=== PATIENT | male | born 1995 | race Two or more races ===

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

== ENCOUNTER 2017-08-25 12:35 | Emergency (ER) | payer MEDICAID ==
[~2017-08-25] VITALS: Ht 182.9 cm; Wt 79.4 kg
[2017-08-25] MEDS ORDERED: KETOROLAC TROMETHAMINE 60 MG INJ IM ONE ×2 (13:30→13:35)
[2017-08-25 13:51] LABS: *BILIRUBIN,URIN NEGATIVE (NEGATIVE); *BLOOD, URINE NEGATIVE (NEGATIVE); *CLARITY,URINE CLOUDY (CLEAR); *COLOR,URINE YELLOW (YELLOW); *KETONES,URINE NEGATIVE (NEGATIVE); *PROTEIN,URINE NEGATIVE (NEGATIVE); *UROBILINOGEN,URINE 0.2 E.U./dl (NORMAL); LEUKOCYTE ESTERASE ,URINE NEGATIVE (NEGATIVE); NITRITE, URINE NEGATIVE (NEGATIVE); PH,URINE 7.5 (5.0-8.0); UGLUCOSE NEGATIVE (NEGATIVE)
[2017-08-25 14:09] LABS: BACTERIA,URINE NONE SEEN /HPF (NONE SEEN); RBC,URINE 0-3 /HPF (0-3); SQUAMOUS EPITHELIAL CELL,UR FEW /HPF (NONE SEEN); WBC,URINE 0-3 /HPF (0-3)
[2017-08-25 14:10] LABS: MUCUS,URINE FEW /LPF (0-FEW); URINE AMORPHOUS PHOSPHATES MODERATE /HPF
[2017-08-25 14:11] VITALS: BP 112/77
--- NOTE | 2017-08-25 14:11 | NUR ---
Patient discharged to home in stable conditon. Written and verbal after care instructions given. Patient verbalizes understanding of instructions.
== END 2017-08-25 14:12 | disposition home or self-care (01) ==
LOC: ER 12:37
DX: S39.012A Strain of muscle, fascia and tendon of lower back, initial encounter (principal); X58.XXXA Exposure to other specified factors, initial encounter; Y92.89 Other specified places as the place of occurrence of the external cause
CPT/HCPCS: 81001; 99283; A4663; J1885

== ENCOUNTER 2022-10-17 03:42 | Emergency (ER) | payer MEDICAID ==
[~2022-10-17] VITALS: Ht 182.9 cm; Wt 95.3 kg
--- NOTE | 2022-10-17 03:51 | NUR ---
Dr. Moulton at bedside for mSE.
--- NOTE | 2022-10-17 04:00 | NUR ---
xray at bedside.
[2022-10-17] MEDS ORDERED: ACET1TAB23 PO (04:18)
[2022-10-17 04:21] VITALS: BP 138/89; O2SAT 100
--- NOTE | 2022-10-17 04:21 | NUR ---
Patient discharged to home in stable condition. Written and verbal after care instructions given. Patient verbalizes understanding of instructions. Stressed follow up or return to ER for worsening s/s. Patient out of ER with steady gait, no acute signs of distress, VSS, all belongings taken.
== END 2022-10-17 04:22 | disposition home or self-care (01) ==
LOC: ER 03:42
DX: S62.617A Displaced fracture of proximal phalanx of left little finger, initial encounter for closed fracture (principal); Z79.899 Other long term (current) drug therapy; X58.XXXA Exposure to other specified factors, initial encounter; Y93.61 Activity, american tackle football; Y92.89 Other specified places as the place of occurrence of the external cause; Y99.8 Other external cause status
CPT/HCPCS: 73130; A4663

== ENCOUNTER 2023-11-13 14:09 | Emergency (ER) | payer MEDICAID, OTHER ==
[~2023-11-13] VITALS: Ht 182.9 cm; Wt 99.8 kg
[~2023-11-13 14:09] MED LIST: ACET1TAB23 PO
[2023-11-13 14:14] VITALS: O2SAT 99
[2023-11-13] MEDS ORDERED: NEOMY/BACITRAC/POLYMI OINT 28.35 GM TUBE ONE (14:35)
[2023-11-13] MEDS ORDERED: TDAP DIPH,PERTUSS,TET VAC/PF 0.5 ML DISP.SYRIN IM ONE (14:39)
[2023-11-13] MEDS: BACITRACIN ZINC OINT 15 GM TUBE TOP ONE (14:42)
[2023-11-13] MEDS: TDAP DIPH,PERTUSS,TET VAC/PF 0.5 ML DISP.SYRIN IM ONE (14:42)
== END 2023-11-13 14:47 | disposition home or self-care (01) ==
LOC: ER 14:12
DX: S60.312A Abrasion of left thumb, initial encounter (principal); S60.311A Abrasion of right thumb, initial encounter; S60.418A Abrasion of other finger, initial encounter; Z79.1 Long term (current) use of non-steroidal anti-inflammatories (NSAID); W22.8XXA Striking against or struck by other objects, initial encounter; Y93.89 Activity, other specified; Y92.89 Other specified places as the place of occurrence of the external cause; Y99.8 Other external cause status
CPT/HCPCS: 90715; A4606; A4663

== ENCOUNTER 2024-02-01 14:57 | Emergency (ER) | payer OTHER ==
[~2024-02-01] VITALS: Ht 182.9 cm; Wt 97.5 kg
[2024-02-01] MEDS ORDERED: CHOL100043 PO (15:21)
[2024-02-01 15:27] VITALS: BP 141/82; TEMP 98; O2SAT 97
== END 2024-02-01 15:27 | disposition home or self-care (01) ==
LOC: ER 14:57
DX: S06.0XAA Concussion with loss of consciousness status unknown, initial encounter (principal); Z79.899 Other long term (current) drug therapy; Z88.7 Allergy status to serum and vaccine; W18.39XA Other fall on same level, initial encounter; Y93.89 Activity, other specified; Y92.89 Other specified places as the place of occurrence of the external cause; Y99.8 Other external cause status
CPT/HCPCS: A4606; A4663